=== PATIENT | female | born 1995 | race African-American/Black ===

== ENCOUNTER 2017-01-22 20:06 | Inpatient (IN) ==
[2017-01-22] MEDS ORDERED: ONDANSETRON 4 MG/2 ML VIAL IV PRN ×2 (20:45→22:20)
[2017-01-22] MEDS ORDERED: BUTORPHANOL 2 MG/ML VIAL IV PRN (20:45)
[2017-01-22 20:55] LABS: Apearance,Urine CLEAR (Clear); Bilirubin,Urine Negative (Negative); Blood, Urine Moderate mg/dL (Negative); Glucose,Urine (UA) Negative (Negative); Ketones,Urine Negative (Negative); Nitrite,Urine Negative (Negative); Protein,Urine Negative; Urine Color Colorless (Yellow); Urine Specific Gravity 1.002 (1.001-1.035); Urine Urobilinogen < 2.0 EU/DL (0.2-1.0); WBC,Urine <1 /HPF (0-6)
[2017-01-22] MEDS ORDERED: LACTATED RINGERS 1,000 ML IV SCH ×2 (21:00→22:30)
[2017-01-22] MEDS ORDERED: CITRIC ACID/SODIUM CITRATE 30 ML UDCUP PO ONE (21:14)
[2017-01-22] MEDS ORDERED: FAMOTIDINE 20 MG/2 ML VIAL IV ONE (21:14)
[2017-01-22] MEDS ORDERED: OXYTOCIN/LR 20 UNIT/1,000 ML BAG IV ONE ×3 (21:18→22:20)
[2017-01-22] MEDS ORDERED: SODIUM CHLORIDE 0.9% 100 ML IV ONE (21:18)
[2017-01-22 21:22] LABS: Basophils % 0.3 % (0.0-0.8); Eosinophils # 0.3 10*3/uL (0.0-0.87); Eosinophils % 2.5 % (0.00-10.9); Hematocrit 34.4 VOL% (35.7-47.0); Hemoglobin 11.3 GM/DL (12.0-16.0); Immature Granulocytes % 0.3 %; Immature Granulocytes Absolute 0.04 #; Lymphocytes # 3.6 10*3/uL (1.4-4.0); Lymphocytes % 30.3 % (21.3-54.2); Mean Corpuscular HGB Conc 32.8 GM/DL (32-36); Mean Corpuscular Hemoglobin 27 PG (27-34); Mean Corpuscular Volume 80.6 FL (87-102); Mean Platelet Volume 11.6 FL (9.6-12.0); Monocytes # 1.1 10*3/uL (0.11-0.8); Monocytes % 8.9 % (1.7-12.7); NRBC # 0.03 10*3/uL; Neutrophils # 6.9 10*3/uL (1.4-7.4); Neutrophils % 57.7 % (38.7-73.9); Platelet Count 238 T/CUMM (130-400); Red Blood Count 4.27 MC/CUMM (3.8-5.5); Red Cell Distribution Width 14.4 % (9.3-17.3)
--- NOTE | 2017-01-22 21:26 | Ultrasound Report ---
Exam: US OB >= 14 weeks fetus Date: 01/22/2017 8:35 PM Comparison: 01/11/2017 Indication: Bright red vaginal bleeding Technique:[Multiple transabdominal real-time scans were obtained pelvis. Color-flow scans were obtained. Ultrasound images were captured and stored.] Findings: Single intrauterine fetus in cephalic presentation with a heart rate 136 BPM. The fundal placenta is not low-lying in position with no evidence of definite placental abruption. Grade 2-3 aging changes are noted. Maternal ovaries are not identified. Cervical length of 32 mm. No detailed survey scans were obtained. The stomach is identified. Measurements obtained are as follows: BPD 36 weeks 4 days HC 35 weeks 6 days AC 35 weeks 2 days FL 36 weeks 2 days EFW 6 lbs. 1 oz. +/- 15 ounces GP 26.7% SHREYA 107.1 mm FL/HC out of range Impression: Single intrauterine fetus in the cephalic presentation at 36 weeks 0 days +/- 2 weeks 4 days with EDC 02/19/2017. No evidence of placental abruption with grade 2-3 aging changes in the placenta. Cervical length of 32 mm. FL/HC out of range which is of questionable significance since the measurements are comparable but follow-up scans may be helpful for further evaluation. PROCEDURE INTERPRETED AT [facility] DEPARTMENT OF RADIOLOGY Final Report Signed by: Dr. Yany Hodge
--- NOTE | 2017-01-22 21:30 | OB/GYN History & Physical ---
History of Present Illness Chief complaint: Bright red vaginal bleeding History of present illness: Ms. Vital is a 21 year old female at 36 6/7 weeks who presented to L&D this evening with complaints of bright red vaginal bleeding. Reports that she noticed it when she went to the restroom. Upon presentation to the unit, bright red bleeding continued. FHTs present on the monitor. Strip without 15/15 accelerations and not reassuring. U/s inconclusive as it is not the test to diagnosis abruption. Explained to the patient and her family that I have serious concern about placental abruption and the right course of action is an urgent primary section. R/B/A to surgery reviewed. Pt and family verbalized understanding and willing to proceed. No medical or surgical history. uneventful. 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 General appearance: normal weight, no acute distress - Head Head exam: Present: normal inspection, normocephalic - Eye Eye exam: Present: EOMI Pupils: Present: ALEXANDRA - Respiratory Respiratory exam: Present: clear to auscultation bilaterally - Cardiovascular Cardiovascular exam: Present: regular rate and rhythm - GI/Abdominal GI/Abdominal exam: Present: firm, other (gravid) Assessment and Plan (1) 36 weeks gestation of Status: Acute Current Visit: Yes (2) Vaginal bleeding during , antepartum Status: Acute Assessment and plan: Proceed with urgent primary section Current Visit: Yes Results - Labs CBC & BMP: 01/22/17 21:17
[2017-01-22] MEDS ORDERED: SODIUM CHLORIDE 0.9% 250 ML IV PRN (21:31)
[2017-01-22 21:46] LABS: Albumin 3.3 G/DL (3.4-5.0); Bilirubin,Total 0.4 MG/DL (0.2-1.0); Calcium 9.4 MG/DL (8.5-10.1); Potassium 4.1 MMOL/L (3.5-5.1); Total Protein 6.9 G/DL (6.4-8.3)
[2017-01-22 21:55] LABS: INR 0.9; PT Patient Result 8.9 SECS; Partial Thromboplastin Time 26.2 SECS (0-40)
[2017-01-22] MEDS ORDERED: RHO(D) IMMUNE GLOBULIN 300 MCG SYRINGE IM ONE (22:20)
[2017-01-22] MEDS ORDERED: NALOXONE 0.4 MG/ML VIAL IV PRN (22:23)
[2017-01-22 22:25] LABS: Cord Arterial Blood HCO3 20.3 MMOL/L
[2017-01-22 22:27] LABS: Cord Venous Blood HCO3 22.4 MMOL/L; Cord Venous Blood PCO2 44.3 MMHG; Cord Venous Blood PO2 26.4 MMHG
[2017-01-22] MEDS ORDERED: HYDROmorphone PCA 30 MG/30 ML SYRINGE IV SCH (22:30)
--- NOTE | 2017-01-22 22:33 | Anesthesia Post-Op ---
Anesthesia Post OP - Post Ansesthetic Evaluation Patient seen in post op: Yes Resp: within normal limits CV: within normal limits Mental: within normal limits Temp: within normal limits Ohtf-Nf-Pikfhxefh: within normal limits Nausea and Vomiting: within normal limits Pain: within normal limits
--- NOTE | 2017-01-22 22:34 | Operative Note ---
Date of procedure: 01/22/17 Pre-op diagnosis: 1. 36 6/7 wks 2. Suspected Placental abruption 3. NRFHTs 4. Vag bleeding Post-op diagnosis: same Procedure: PRIMARY SECTION Pt was taken to the OR, put to sleep, VIELKA. Prepped and draped in sterile fashion with espana in her bladder. Incision made 2 FBs above symphysis pubis and carried down to the underlying fascia. Scored in the midline and extended to either side with Varela scissors. Shante clamps placed superiorly and rectus dissected away. Similar procedure inferiorly. Peritoneum entered sharply in the midline and the incision extended bluntly. Aashish retractor placed. Uterus opened sharply just above bladder reflection. Incision extended bluntly. Membranes ruptured, clear. delivered in the cephalic position with nuchal cord x 1. Cord milked x 4 then handed off to the awaiting NICU team. Placenta delivered and noted to have several clots. Clots also noted in the uterus consistent with abruption. Uterus closed in 2 layers with two vicryl sutures (0).l Male weighing 5 lbs 5 oz with APGARS of 8/8. Normal uterus, tubes and ovaries. Pelvis copiously irrigated with warm saline. Surgicell placed over the wound. Fascia closed with 2 vicryl sutures from either side to midline. Skin closed with 4.0 monocryl suture. Sponge lap and needle counts correct x 2 and patient taken to recovery in stable condition. Anesthesia: GETA Surgeon / Physician: Sania Watts Estimated blood loss: other (400 cc) Specimens: other (placenta) Condition: stable Disposition: PACU Results - Labs CBC & BMP: 01/22/17 21:17 01/22/17 21:17 Discharge Plan - Discharge Medications No Action Vit No.130/Iron/Folic [ Vitamins] 1 each PO DAILY - Follow Up or Referral - Forms/Instructions
[2017-01-22] MEDS ORDERED: fentaNYL 100 MCG/2 ML VIAL ONE (22:37)
[2017-01-22] MEDS ORDERED: MIDAZOLAM 2 MG/2 ML VIAL ONE (22:37)
[2017-01-22] MEDS ORDERED: SEVOFLURANE 1 UNIT/15 MINUTE INH ONE (22:40)
[2017-01-22] MEDS ORDERED: LACTATED RINGERS 1,000 ML IV ONE (22:40)
[2017-01-22] MEDS ORDERED: HYDROmorphone 2 MG/1 ML VIAL IV ONE (23:58)
[2017-01-23] MEDS ORDERED: HYDROmorphone 2 MG/1 ML VIAL ONE (00:06)
[2017-01-23] MEDS: KETOROLAC 30 MG/1 ML VIAL IV SCH ×2 (00:18→06:25)
[2017-01-23 06:06] LABS: Basophils % 0.3 % (0.0-0.8); Eosinophils % 0.2 % (0.00-10.9); Hemoglobin 9.4 GM/DL (12.0-16.0); Immature Granulocytes % 0.6 %; Lymphocytes # 2.5 10*3/uL (1.4-4.0); Lymphocytes % 15.8 % (21.3-54.2); Mean Corpuscular HGB Conc 32.4 GM/DL (32-36); Mean Corpuscular Hemoglobin 26 PG (27-34); Mean Corpuscular Volume 79.9 FL (87-102); Mean Platelet Volume 11.4 FL (9.6-12.0); Monocytes # 1.2 10*3/uL (0.11-0.8); Monocytes % 7.8 % (1.7-12.7); Neutrophils # 11.9 10*3/uL (1.4-7.4); Neutrophils % 75.3 % (38.7-73.9); Platelet Count 182 T/CUMM (130-400); Red Blood Count 3.63 MC/CUMM (3.8-5.5); Red Cell Distribution Width 14.1 % (9.3-17.3); White Blood Count 15.7 T/CUMM (4-12)
[2017-01-23] MEDS ORDERED: IBUPROFEN 800 MG TABLET PO SCH (08:00)
--- NOTE | 2017-01-23 08:44 | OB/GYN Progress Note ---
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 Patient reports some soreness at incisional site. 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
[2017-01-23] MEDS: MULTIVITAMIN (PRENATAL) TABLET PO SCH (09:08)
[2017-01-23] MEDS: DOCUSATE SODIUM 100 MG CAPSULE PO SCH ×2 (09:08→21:36)
[2017-01-23] MEDS ORDERED: KETOROLAC 30 MG/1 ML VIAL IV ONE (12:03)
[2017-01-23] MEDS: IBUPROFEN 800 MG TABLET PO SCH (18:30)
[2017-01-23] MEDS: SIMETHICONE CHEW 80 MG TABLET PO PRN (21:36)
[2017-01-23] MEDS: MAGNESIUM HYDROXIDE SUSP 30 ML UDCUP PO PRN (21:36)
[2017-01-24] MEDS: IBUPROFEN 800 MG TABLET PO SCH ×3 (02:09→18:29)
--- NOTE | 2017-01-24 08:22 | OB/GYN Progress Note ---
Assessment and Plan (1) 36 weeks gestation of Status: Acute Current Visit: Yes (2) Vaginal bleeding during , antepartum Status: Acute Assessment and plan: Proceed with urgent primary section Current Visit: Yes [employer]PER[employer] - PN: Subj Interval history: Feels sore this morning. 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[employer] - Constitutional Vitals: Vital Signs Temp Pulse Resp BP Pulse Ox 01/24/17 07:37 97.6 F 66 18 116/57 98 01/24/17 06:00 18 01/24/17 04:10 97.6 F 86 18 125/74 96 01/24/17 00:09 98.5 F 82 16 115/72 98 01/23/17 22:10 18 01/23/17 20:00 98.7 F 72 18 132/78 96 01/23/17 11:13 98.4 F 67 18 141/83 98 01/23/17 08:42 97.3 F L 64 18 150/87 97 General appearance: normal weight, no acute distress - Head Head exam: Present: normal inspection, normocephalic - Eye Eye exam: Present: EOMI - GI/Abdominal GI/Abdominal exam: Present: soft, other (Incision intact) Results - Labs CBC & BMP: 01/23/17 05:54 01/22/17 21:17
[2017-01-24] MEDS: MULTIVITAMIN (PRENATAL) TABLET PO SCH (08:35)
[2017-01-24] MEDS: DOCUSATE SODIUM 100 MG CAPSULE PO SCH ×2 (08:41→20:23)
--- NOTE | 2017-01-24 12:17 | Pathology Report from [facility] ---
[facility] ACCESSION # : [id number] PATIENT NAME : Larissa Vickers ORDERING DR : Sania Watts MD CLINICAL HX: IUP @ 36-6/7 weeks gestation - Abruptio placenta POST-OP DX: Same SPECIMEN INFO: Placenta GROSS DESCRIPTION: Received fresh labeled with the patients name and consists of a 280 gram placenta which measures 17.5 x 13.5 x 2.0 cm. membranes are pink-francis and translucent. The umbilical cord measures 16.0 cm, contains three vessels and is centrally inserted. The surface is blue-haddad and intact. The maternal surface displays hemorrhagic red-haddad cotyledons with scattered areas of fibrin noted measuring up to 3.0 x 1.5 cm. Sections submitted: A membranes and cord, B and maternal surfaces. DIAGNOSIS FOR LARISSA VICKERS: PLACENTA, MEMBRANES, UMBILICAL CORD: Focal placental infarction, subchorionic acute and chronic inflammation, focal dystrophic calcification. Tri-vessel umbilical cord. Membranes with focal chronic inflammation and attached blood. COLLECTED DATE: 01/23/2017 [facility] REPORT DATE: 01/24/2017 ELECTRONICALLY SIGNED BY: Deborah Dickerson M.D. 01/24/2017 - 11:44:02 JONI
[2017-01-24] MEDS: MAGNESIUM HYDROXIDE SUSP 30 ML UDCUP PO PRN (20:21)
[2017-01-24] MEDS: SIMETHICONE CHEW 80 MG TABLET PO PRN (20:21)
[2017-01-25] MEDS: IBUPROFEN 800 MG TABLET PO SCH ×2 (03:34→09:52)
[2017-01-25 08:09] VITALS: BP 111/58
[2017-01-25] MEDS: DOCUSATE SODIUM 100 MG CAPSULE PO SCH (09:52)
[2017-01-25] MEDS: MULTIVITAMIN (PRENATAL) TABLET PO SCH (09:52)
--- NOTE | 2017-01-25 10:07 | Discharge Summary ---
Hospital Course - Hospital Course Hospital Course: Routine Post op course. Feels well and ready to go home Diagnosis - Discharge Diagnosis (1) 36 weeks gestation of Status: Acute (2) Vaginal bleeding during , antepartum Status: Acute Specialty Discharge - Follow Up or Referrals Follow up with: Sania Watts MD [Physician] - Discharge Plan - Discharge Data Disposition: Disch To Home/Self Care Condition at Discharge: Stable Discharge Diet: advance to your usual diet Activity: other (routine post op) Hygiene: may shower Weight Bearing at Discharge: full weight bearing Driving: not for (2 weeks) Contact your physician if you experience:: fever over 101, Difficulty voiding, Redness or swelling - Discharge Medications New Docusate Sodium Cap [Colace Cap] 100 mg PO BID #30 capsule Ibuprofen Tab [Motrin Tab] 800 mg PO Q8H #30 tablet HYDROcodone/ACETAMIN 5-325 [Kent 5-325] 2 tablet PO Q6H PRN #20 tablet PRN Reason: Pain Severe (8-10) No Action Vit No.130/Iron/Folic [ Vitamins] 1 each PO DAILY - Follow Up or Referral Follow Up: Sania Watts MD [Physician] - - Forms/Instructions Instructions: Section (DC), Surgical Site Infections (GEN), Bleeding (DC) Exam - Constitutional Vitals: Period Temp Pulse Resp BP Sys/Pelaez Pulse Ox Last 24 Hr 96.9 F-99.2 F 67-79 18-20 108-125/58-84 96-100 General appearance: normal weight, no acute distress - Head Head exam: Present: normal inspection, normocephalic - Eye Eye exam: Present: EOMI Pupils: Present: ALEXANDRA - GI/Abdominal GI/Abdominal exam: Present: other (Incision intact) Discharge Results Procedures and tests throughout hospitalization: Pending Orders 01/22/17 21:37 Red Blood Cells Leuko Red Stat DS: Provider Date of admission: 01/22/17 21:33 Primary care physician: . No PCP Attending physician on admission: Sania Watts MD Consults: 01/22/17 22:20 Consult to Machine Preservative Filler [CONS] Routine Consult Machine Preservative Filler: Breast Feeding Discharging clinician: Sania Watts MD
[2017-01-25] MEDS ORDERED: DIPH/TET/ACEL PERT BOOSTER VACCINE 0.5 ML VIAL IM ONE (10:47)
[2019-01-22] MEDS ORDERED: PROPOFOL 200 MG/20 ML VIAL IV ONE (21:25)
[2019-01-22] MEDS ORDERED: SUCCINYLCHOLINE 200 MG/10 ML VIAL ONE (21:25)
[2019-01-22] MEDS ORDERED: ONDANSETRON 4 MG/2 ML VIAL ONE (21:25)
== END 2017-01-25 13:45 | disposition home or self-care (01) | DRG 540 ==
LOC: N.LDOUT 20:06 → N.LD 20:10 → N.OB 01-23 01:30
PROVIDERS: ADMIT Obstetrics & Gynecology; ATTEND Obstetrics & Gynecology
PROC: LDCSECT (ICD-10-PCS; 2017-01-22 21:20)